=== PATIENT | female | born 1945 | race Caucasian/White ===

== ENCOUNTER → 2017-06-24 | Outpatient (CLI) | payer MEDICARE, OTHER ==
[~2017-06-24] MED LIST: BIOTIN PO; CALTRATE 600 + D3 PO; CARAFATE1 GM PO; CENTRUM SILVER1 TAB PO; CLARITIN10 MG PO; DRISDOL 5050000 UNIT PO; FEOSOL325 MG PO; OMEPRAZOLE40 MG PO; VITAMIN B-121000 MCG PO; VITAMIN D-32000 UNI1 PO
== END | disposition disaster alternative care site (69) ==
LOC: GRAD 11:47
DX: C54.1 Malignant neoplasm of endometrium (principal)
CPT/HCPCS: Q9967